=== PATIENT | male | born 1955 | race Caucasian/White ===

== ENCOUNTER 2022-06-08 06:14 | Observation (INO) ==
--- NOTE | 2022-06-07 13:02 | XRay Report ---
CLINICAL INFORMATION: Preop COMPARISON: 01/09/2017 TECHNIQUE: PA and Lateral views FINDINGS: The heart size, mediastinum and pulmonary vessels are unremarkable. The lungs are clear. There are no effusions. The bones and soft tissues are within normal limits. IMPRESSION: Normal chest. Interpreted and Authenticated by: Renaldo Suh 06/07/22
[2022-06-07 13:09] LABS: Basophils # (Auto) 0.08 K/mcL (0.00-0.30); Eosinophils # (Auto) 0.31 K/mcL (0.00-0.70); Hematocrit 44.3 % (40.1-51.0); Hemoglobin 15.4 g/dL (13.7-17.5); Lymphocytes # (Auto) 2.18 K/mcL (1.50-4.80); Lymphocytes % (Auto) 28.3 % (15.5-49.0); Mean Cell Volume 91.2 fL (80.0-100.0); Mean Corpuscular HGB Conc 34.8 g/dL (31.0-36.0); Mean Platelet Volume 10.3 fL (7.4-10.4); Monocytes # (Auto) 0.82 K/mcL (0.10-0.90); Monocytes % (Auto) 10.6 % (1.0-12.0); Neutrophils % (Auto) 55.2 % (38.0-78.0); Platelet Count 314 K/mcL (140-440); RBC 4.86 M/mcL (4.63-6.08); Red Cell Distribution Width 11.8 % (11.5-14.5); WBC 7.7 K/mcL (4.5-11.0)
[2022-06-07 13:54] LABS: Prothrombin Time 14.1 sec (11.9-14.5)
[2022-06-07 14:12] LABS: ALT/SGPT 74 U/L (<40); AST/SGOT 42 U/L (<40); Albumin/Globulin Ratio 1.3 (1.0-2.3); Alkaline Phosphatase 109 U/L (39-117); Bilirubin,Total 0.5 mg/dL (0.1-1.0); Blood Urea Nitrogen 14 mg/dL (8-23); Calcium 8.9 mg/dL (8.6-10.4); Carbon Dioxide 23 mmol/L (22-30); Chloride 104 mmol/L (96-108); Glomerular Filtration Rate 79; Glucose 87 mg/dL (70-105)
[~2022-06-08 06:14] MED LIST: ceFAZolin 2 GM in DEXTROSE 5% IN WATER 50 ML IV SCH
[2022-06-08] MEDS ORDERED: GLYCOPYRROLATE 0.2 MG/ML VIAL IV ONE (07:27)
[2022-06-08] MEDS ORDERED: PROPOFOL 200 MG/20 ML VIAL IV ONE (07:27)
[2022-06-08] MEDS ORDERED: fentaNYL 100 MCG/2 ML VIAL IV ONE (07:27)
[2022-06-08] MEDS ORDERED: SUGAMMADEX SODIUM 200 MG/2 ML VIAL IV ONE (07:27)
[2022-06-08] MEDS ORDERED: HYDROmorphone 1 MG/ML SYRINGE ONE (07:27)
[2022-06-08] MEDS ORDERED: LIDOCAINE HCL/PF 100 MG/5 ML SYRINGE IV ONE (07:27)
[2022-06-08] MEDS ORDERED: KETAMINE 50 MG/ML Syringe (ANEST) IV ONE (07:27)
[2022-06-08] MEDS ORDERED: MAGNESIUM SULFATE 2 GM/50 ML BAG IV ONE (07:27)
[2022-06-08] MEDS ORDERED: DEXAMETHASONE 10 MG/ML VIAL ONE (07:27)
[2022-06-08] MEDS ORDERED: MIDAZOLAM 2 MG/2 ML VIAL ONE (07:27)
[2022-06-08] MEDS ORDERED: ROCURONIUM 10 MG/ML ML IV ONE (07:27)
--- NOTE | 2022-06-08 09:11 | Brief Operative Note ---
Brief Operative Note Date of procedure: 06/08/22 Pre-op diagnosis: cholelithiasis with cholecystitis Post-op diagnosis: other (cholelithiasis with cholecystitis) Procedure: laparoscopic cholecystectomy Grafts/Implants: No (elvis drain #10) Anesthesia: GETA Findings: acute severe inflammation of gallbladder with multiple stones Complications: none Surgeon: Marcia Joyner Estimated blood loss (cc): 20 Specimens Removed/Pathology: other (gallbladder) Condition: stable Disposition: PACU
[2022-06-08] MEDS ORDERED: IPRATROPIUM/ALBUTEROL 3 ML AMPUL.NEB NEB PRN (09:19)
[2022-06-08] MEDS ORDERED: MEPERIDINE 25 MG/ML VIAL IV PRN (09:19)
[2022-06-08] MEDS ORDERED: NALOXONE HCL 0.4 MG/ML VIAL IV PRN (09:19)
[2022-06-08] MEDS ORDERED: FLUMAZENIL 0.1 MG/ML ML IV PRN (09:19)
[2022-06-08] MEDS ORDERED: LABETALOL 5 MG/ML ML IV PRN (09:19)
[2022-06-08] MEDS ORDERED: ACETAMINOPHEN 1,000 MG/100 ML BAG IV ONE (09:19)
[2022-06-08] MEDS ORDERED: LACTATED RINGERS 250 ML IV PRN (09:19)
[2022-06-08] MEDS ORDERED: ONDANSETRON 4 MG/2 ML VIAL IV PRN (09:19)
[2022-06-08] MEDS ORDERED: METHOCARBAMOL 1,000 MG/10 ML VIAL IV PRN (09:19)
[2022-06-08] MEDS ORDERED: METOPROLOL TARTRATE 5 MG/5 ML VIAL IV PRN (09:19)
[2022-06-08] MEDS: fentaNYL 100 MCG/2 ML VIAL IV PRN ×4 (09:25→09:31)
[2022-06-08] MEDS ORDERED: LACTATED RINGERS 1,000 ML IV SCH (09:30)
[2022-06-08] MEDS: HYDROmorphone 0.5 MG/0.5 ML SYRINGE IV PRN ×3 (09:38→10:20)
[2022-06-08] MEDS ORDERED: KETOROLAC 30 MG/ML VIAL IV ONE (09:46)
[2022-06-08] MEDS: oxyCODONE HCL 5 MG TABLET PO PRN ×4 (10:53→23:51)
[2022-06-08] MEDS: HYDROmorphone 1 MG/ML SYRINGE IV PRN ×2 (10:53→13:12)
[2022-06-08] MEDS: LEVOFLOXACIN 750 MG/150 ML BAG IV SCH (10:56)
[2022-06-08] MEDS: 0.9 % SODIUM CHLORIDE 1,000 ML IV SCH ×3 (11:00→23:39)
[2022-06-08] MEDS: 0.9 % SODIUM CHLORIDE 10 ML SYRINGE IV SCH ×2 (13:00→22:25)
[2022-06-08] MEDS: ACETAMINOPHEN 1,000 MG/100 ML BAG IV SCH ×2 (14:58→21:18)
[2022-06-09] MEDS: ACETAMINOPHEN 1,000 MG/100 ML BAG IV SCH ×2 (03:04→10:11)
[2022-06-09] MEDS: 0.9 % SODIUM CHLORIDE 1,000 ML IV SCH ×4 (03:42→21:55)
[2022-06-09] MEDS: 0.9 % SODIUM CHLORIDE 10 ML SYRINGE IV SCH ×3 (04:42→21:51)
[2022-06-09 06:51] LABS: Basophils # (Auto) 0.02 K/mcL (0.00-0.30); Basophils % (Auto) 0.1 % (0.0-2.0); Eosinophils # (Auto) 0 K/mcL (0.00-0.70); Eosinophils % (Auto) 0 % (0.0-7.0); Hematocrit 47.4 % (40.1-51.0); Hemoglobin 15.5 g/dL (13.7-17.5); Lymphocytes # (Auto) 1.16 K/mcL (1.50-4.80); Lymphocytes % (Auto) 8.4 % (15.5-49.0); Mean Cell Volume 95.4 fL (80.0-100.0); Mean Corpuscular HGB Conc 32.7 g/dL (31.0-36.0); Mean Platelet Volume 10.1 fL (7.4-10.4); Monocytes # (Auto) 1.05 K/mcL (0.10-0.90); Monocytes % (Auto) 7.6 % (1.0-12.0); Neutrophils % (Auto) 83.2 % (38.0-78.0); Platelet Count 261 K/mcL (140-440); RBC 4.97 M/mcL (4.63-6.08); Red Cell Distribution Width 11.9 % (11.5-14.5); WBC 13.8 K/mcL (4.5-11.0)
[2022-06-09 07:17] LABS: ALT/SGPT 619 U/L (<40); AST/SGOT 645 U/L (<40); Albumin 3.9 gm/dL (3.2-5.2); Albumin/Globulin Ratio 1.3 (1.0-2.3); Alkaline Phosphatase 184 U/L (39-117); Bilirubin,Total 3.5 mg/dL (0.1-1.0); Blood Urea Nitrogen 8 mg/dL (8-23); Calcium 8.9 mg/dL (8.6-10.4); Carbon Dioxide 22 mmol/L (22-30); Chloride 104 mmol/L (96-108); Globulin 3.1 gm/dL (2.2-3.7); Glomerular Filtration Rate 99; Glucose 117 mg/dL (70-105); Lactate Dehydrogenase 477 U/L (135-225); Phosphorous 2.6 mg/dL (2.5-4.5); Triglycerides 43 mg/dL (<150); Uric Acid 3.4 mg/dL (2.5-8.0)
[2022-06-09] MEDS: HYDROmorphone 1 MG/ML SYRINGE IV PRN ×2 (08:50→13:59)
[2022-06-09] MEDS ORDERED: NON FORMULARY MEDICATION 1 DOSE MISCELL PO SCH (09:00)
[2022-06-09] MEDS: oxyCODONE HCL 5 MG TABLET PO PRN ×2 (11:11→19:31)
[2022-06-09] MEDS: LEVOFLOXACIN 750 MG/150 ML BAG IV SCH (11:50)
--- NOTE | 2022-06-09 13:08 | Magnetic Resonance Report ---
CLINICAL INFORMATION: Cholecystectomy. Elevated bilirubin COMPARISON: Abdomen and pelvic CT 05/24/2022. TECHNIQUE: MRCP was performed using 3D FRFSE respiratory triggered and single-shot FSE thick slab technique. Axial T2 SSFSE and coronal SSFSE images were obtained through the upper abdomen as well. FINDINGS: Common bile duct is slightly dilated (8 mm) compatible post cholecystectomy state. Intrahepatic common hepatic ducts are normal. There is no stones within the common bile duct. Pancreatic duct is normal in contour, caliber and signal. The liver, both kidneys, adrenal glands, spleen, pancreas and aorta are normal in size, configuration and signal intensity. No free fluid. IMPRESSION: Slight dilatation the common bile duct-expected post cholecystectomy state. Exam otherwise normal. Interpreted and Authenticated by: Renaldo Suh 06/09/22
--- NOTE | 2022-06-09 13:43 | General Surgery Progress Note ---
SUBJECTIVE Subjective Patient information: Note initiated : 06/09/22 at 1:34 pm Service Date, if different from initiated Date: [] Patient: Eladio Rolle 67 y/o M admitted on 06/09/22 for Laparoscopic Cholecystectomy. Chief Complaint: [] Principal diagnosis: Acute cholecystitis with cholelithiasis Interval history: Patient is status post laparoscopic cholecystectomy on yesterday. He had acute severe inflammation but his surgery proceeded well. His LFTs are elevated with bilirubin of 3.5 AST 645, ALT 619, alkaline phosphatase 184. Serum lipase is normal. Patient underwent MRCP earlier today and it is interpreted as normal with normal size common bile duct and normal tapering at the papilla with contrast in the bile and normal pancreatic duct. There are no filling defects in the hepatic or the common bile duct. This was reviewed with the radiologist. Discussed the findings with data analyst who suggest that we repeat the LFTs in the morning and if they are trending down he will not need to have ERCP. Constitutional Vitals: Vital Signs Temp Pulse Resp BP Pulse Ox O2 Del Method O2 Flow Rate 98 F 60 16 124/70 96 3 06/09/22 11:14 06/09/22 11:14 06/09/22 11:14 06/09/22 11:14 06/09/22 11:14 06/09/22 11:14 06/08/22 10:25 Period Temp Pulse Resp BP Sys/Batista Pulse Ox O2 Del Method O2 Flow Rate Last 24 Hr 97.3 F-98.1 F 59-78 14-20 120-143/70-91 95-97 Room Air-Room Air Intake and Output 06/08/22 06/09/22 06/09/22 21:59 05:59 13:59 Intake Total 2450 400 1240 Output Total 280 30 Balance 2170 370 1240 Intake & Output: Intake & Output 06/08/22 06/09/22 06/09/22 21:59 05:59 13:59 Intake Total 2450 400 1240 Output Total 280 30 Balance 2170 370 1240 Intake: IV 7820 352 9813 Sodium Chloride 0.9% 1,000 ml @ 1000 1000 100 mls/hr IV .Q10H SHANKAR Rx#: [id number] Oral 1250 300 240 Output: Drainage 30 30 Right Lower Abdomen 30 30 Void Amount 250 Other: Meal Breakfast Percent of Meal Consumed 100% Feeding Ability Independent # Voids 1 2 Eye Eye exam: Present EOMI, normal appearance and scleral icterus (Mild) ENT ENT exam: Present normal external ear exam and normal oropharynx Neck Neck exam: Present full ROM and normal inspection; Absent tenderness Respiratory Respiratory exam: Present normal respiratory exam and CTAB Cardiovascular Cardiovascular exam: Present normal rate and rhythm, RRR, +S1 and +S2; Absent JVD GI/Abdominal GI/Abdominal exam: Present normal bowel sounds and distended Additional comments: KEON drainage is serosanguineous Extremities Exam Extremities exam: Present full ROM and neurovascular intact Neurological Exam Neurological exam: Present alert, normal gait, oriented X3 and reflexes normal Psychiatric Psychiatric exam: Present normal affect and normal mood A/P Assessment and plan (1) Cholelithiasis with cholecystitis without obstruction: Status: Acute (2) Hypertension: Status: Chronic (3) GERD (gastroesophageal reflux disease): Status: Chronic (4) Elevated liver transaminase level: Status: Acute Plan Patient is stable except for elevated transaminases Will repeat labs in the morning and make decision concerning ERCP based on the trending of the labs Time Spent With Patient Time: Total time spent is greater than 50% in coordination of care (as documented) at patient's floor/unit and/or counseling patient:
[2022-06-09] MEDS ORDERED: ALPRAZolam 0.5 MG TABLET PO ONE (19:50)
[2022-06-09] MEDS ORDERED: METHOCARBAMOL 750 MG TABLET PO SCH (21:00)
[2022-06-09] MEDS: LOSARTAN 50 MG TABLET PO SCH (21:47)
[2022-06-10] MEDS: oxyCODONE HCL 5 MG TABLET PO PRN (03:16)
[2022-06-10] MEDS: 0.9 % SODIUM CHLORIDE 10 ML SYRINGE IV SCH (05:04)
[2022-06-10 06:30] LABS: Basophils # (Auto) 0.05 K/mcL (0.00-0.30); Basophils % (Auto) 0.6 % (0.0-2.0); Eosinophils # (Auto) 0.11 K/mcL (0.00-0.70); Eosinophils % (Auto) 1.3 % (0.0-7.0); Hematocrit 45.7 % (40.1-51.0); Hemoglobin 15.3 g/dL (13.7-17.5); Lymphocytes # (Auto) 2.46 K/mcL (1.50-4.80); Lymphocytes % (Auto) 28.2 % (15.5-49.0); Mean Corpuscular HGB Conc 33.5 g/dL (31.0-36.0); Mean Platelet Volume 10.4 fL (7.4-10.4); Monocytes # (Auto) 0.82 K/mcL (0.10-0.90); Monocytes % (Auto) 9.4 % (1.0-12.0); Neutrophils % (Auto) 59.8 % (38.0-78.0); Platelet Count 246 K/mcL (140-440); RBC 4.97 M/mcL (4.63-6.08); Red Cell Distribution Width 12.2 % (11.5-14.5); WBC 8.7 K/mcL (4.5-11.0)
[2022-06-10 06:59] LABS: ALT/SGPT 570 U/L (<40); AST/SGOT 341 U/L (<40); Albumin 3.6 gm/dL (3.2-5.2); Albumin/Globulin Ratio 1.2 (1.0-2.3); Alkaline Phosphatase 185 U/L (39-117); Bilirubin,Direct 0.6 mg/dL (<0.3); Bilirubin,Total 1.1 mg/dL (0.1-1.0); Blood Urea Nitrogen 6 mg/dL (8-23); Calcium 8.5 mg/dL (8.6-10.4); Carbon Dioxide 24 mmol/L (22-30); Chloride 107 mmol/L (96-108); Globulin 2.9 gm/dL (2.2-3.7); Glomerular Filtration Rate 89; Glucose 86 mg/dL (70-105); Lactate Dehydrogenase 287 U/L (135-225); Phosphorous 2.3 mg/dL (2.5-4.5); Triglycerides 94 mg/dL (<150); Uric Acid 3.2 mg/dL (2.5-8.0)
[2022-06-10] MEDS: 0.9 % SODIUM CHLORIDE 1,000 ML IV SCH (08:12)
[2022-06-10] MEDS: LOSARTAN 50 MG TABLET PO SCH (08:13)
--- NOTE | 2022-06-10 10:15 | Discharge Summary ---
Discharge Provider Provider IMPORTANT FOLLOW-UP INFORMATION FOR PCP: Patient information: Note initiated : 06/10/22 at 10:13 am Service Date, if different from initiated Date: [] Patient: Eladio Rolle 67 y/o M admitted on 06/09/22 for Laparoscopic Cholecystectomy. Chief Complaint: [] Date of admission: 06/09/22 08:43 Discharge date: 06/10/22 Primary care physician: Yojana Oconnor Admitting clinician: Marcia Joyner Attending physician on admission: Marcia Joyner Attending physician on discharge: Marcia Joyner Discharging clinician: Marcia Joyner COURSE Hospital Course Hospital course: 67-year-old male with history of cholelithiasis and cholecystitis. He underwent laparoscopic cholecystectomy on 06/08/2022. He had a major stone blocking the neck of the gallbladder with severe inflammation. He had a difficult dissection but the ductal structures were isolated appropriately. He did well in the postop period but follow-up enzymes on the first postop day showed bilirubin of 3.5, ALK AST of 6045, ALT 619, alkaline phosphatase of 184. He also had a white blood count of 13,800. The patient underwent an MRCP. This was interpreted as normal with a normal cystic duct remnant, 8 mm common bile duct, normal pancreatic duct and free flow into the duodenum. It was elected to simply monitor the patient overnight. He continues to do well. He tolerated regular diet. Today his white blood count is down to 8700 and his liver enzymes are all decreased with a bilirubin of 1.1, AST 341, ALT 570, alkaline phosphatase 185. Patient has no complaints at this time and is stable for discharge home. He is advised to have repeat liver enzymes and CBC on the Monday prior to his office follow-up. He states that he will have this done at his primary care office and they will get us a copy. Discharge diagnosis: Acute cholecystitis with cholelithiasis Secondary discharge diagnosis: Elevated liver transaminase levels Hypertension Gastroesophageal reflux disease Reason for admission: Postoperative cholecystectomy Procedures: Laparoscopic cholecystectomy Pertinent studies/significant findings: MRCP on 06/09/2022 Complications: None Time Spent with Patient Time attestation: Total time spent providing and/or coordinating discharge services: Time spent: Less than 30 minutes Physical Examination Vital Signs Vital signs: Temp Pulse Resp BP Pulse Ox O2 Del Method O2 Flow Rate 98.2 F 58 L 19 138/89 97 3 06/10/22 07:16 06/10/22 07:16 06/10/22 07:16 06/10/22 07:16 06/10/22 07:16 06/10/22 03:20 06/08/22 10:25 Eyes Eye exam: PERRL and normal ocular movement; negative icteric ENT ENT exam: normal mucosa and decreased hearing Head Head exam IM: Present atraumatic, normal inspection and normocephalic Neck Neck exam: no masses, no bruits, trachea midline, no lymphadenopathy and no venous distension Cardiovascular Cardiovascular exam IM: Present RRR, +S1 and +S2; Absent normal rate and rhythm, gallop or JVD Respiratory Respiratory exam: normal expansion, normal respiratory effort and clear to auscultation Abdomen Abdomen: Present soft, tender (Tenderness around port sites) and surgical scars (Port sites. Unremarkable) Integumentary Integumentary: Present no rash, no growths and no abnormal pigmentation Neurologic Neurologic: Present normal coordination and normal sensation Musculoskeletal Musculoskeletal: Present normal gait and normal posture Psychiatric Psychiatric: Present oriented to time, oriented to person, oriented to place, speech is normal and memory intact Discharge Plan Patient/Caregiver Discharge Instructions Activity: increase activity as tolerated Diet: Low Fat Instructions: Oxycodone/Acetaminophen (By mouth), Levofloxacin (By mouth), Laparoscopic Cholecystectomy (DC) Stand Alone Forms: Work/Release Restrictions Prescriptions: New oxycodone-acetaminophen [Endocet] 10-325 mg tablet 1 tab PO Q4H PRN (Reason: Pain) Qty: 30 0RF levofloxacin [levofloxacin] 750 mg tablet 750 mg PO DAILY Qty: 7 0RF Continued methocarbamol 750 mg tablet 750 mg PO QHS tramadol 50 mg tablet 50 mg PO BID etodolac 400 mg tablet 400 mg PO BID valsartan 80 mg tablet 80 mg PO QAM diltiazem HCl 240 mg capsule,extended release 24hr 240 mg PO QAM oxycodone-acetaminophen 7.5-325 mg tablet 1 tab PO TID PRN (Reason: Pain) tadalafil 20 mg tablet 20 mg PO QDAY PRN (Reason: Rash) Rx Instructions: administer approximately 30min before sexual activity; do not use more than 1 dose per 24hrs multivitamin Tablet 1 tab PO QAM magnesium 500 mg Tablet 500 mg PO ONCE triamcinolone acetonide 0.1 % Cream 1 applic TOPICAL QDAY Follow Up Plan Follow up with: Marcia Joyner MD [Physician] - 06/23/22 9:45 am Patient Disposition: Home, Self-Care Plan of Treatment: patient needs to have a CBC AND COMPREHENSIVE PANEL PERFORMESD ON 20 JUNE 2022 Prognosis: Good Rehab Potential: Good I certify that the patient requires SNF services: No Overall status at discharge: patient is progressing back to baseline Discharge Orders: Discharge Order (Routine); Ordered 06/10/22 Ordered By: Marcia Joyner Pending Pending Pending: Resuscitation Status Resuscitate (Full Code) Diet Low Fat Diet Start MonJun 10 703 Hydromorphone HCl (Hydromorphone 1 Mg/Ml Syringe) 1 mg IV Q2HP PRN; Protocol PRN Reason: Per Pain Protocol Last Admin: 06/09/22 13:59 Dose: 1 mg Documented By: Admin: 06/09/22 08:50 Dose: 1 mg Documented By: Admin: 06/08/22 13:12 Dose: 1 mg Documented By: Admin: 06/08/22 10:53 Dose: 1 mg Documented By: GRACIELA Sodium Chloride (Sodium Chloride 0.9%) 1,000 mls @ 100 mls/hr IV .Q10H SHANKAR Last Infusion: 06/10/22 09:03 Dose: 0 mls/hr Documented By: Admin: 06/10/22 08:12 Dose: 100 mls/hr Documented By: Infusion: 06/10/22 07:55 Dose: 100 mls/hr Documented By: Admin: 06/09/22 21:55 Dose: 100 mls/hr Documented By: Infusion: 06/09/22 21:55 Dose: 0 mls/hr Documented By: EkaterinaXDanny Admin: 06/09/22 14:13 Dose: Not Given Documented By: Admin: 06/09/22 09:40 Dose: 100 mls/hr Documented By: Infusion: 06/09/22 09:39 Dose: 0 mls/hr Documented By: Admin: 06/09/22 03:42 Dose: Not Given Documented By: Admin: 06/08/22 23:39 Dose: 100 mls/hr Documented By: Admin: 06/08/22 21:19 Dose: Not Given Documented By: Infusion: 06/08/22 21:00 Dose: 100 mls/hr Documented By: Admin: 06/08/22 11:00 Dose: 100 mls/hr Documented By: GRACIELA Levofloxacin (Levaquin) 750 mg in 150 mls @ 100 mls/hr IV Q24H SHANKAR; Protocol Last Infusion: 06/09/22 13:49 Dose: 0 mls/hr Documented By: Admin: 06/09/22 11:50 Dose: 100 mls/hr Documented By: Infusion: 06/08/22 12:26 Dose: 0 mls/hr Documented By: Admin: 06/08/22 10:56 Dose: 100 mls/hr Documented By: GRACIELA Losartan Potassium (Losartan 50 Mg Tablet) 50 mg PO DAILY [facility] Last Admin: 06/10/22 08:13 Dose: 50 mg Documented By: Admin: 06/09/22 21:47 Dose: 50 mg Documented By: TRACIE Methocarbamol (Methocarbamol 750 Mg Tablet) 750 mg PO HS [facility] Last Admin: 06/09/22 21:47 Dose: 750 mg Documented By: TRACIE Oxycodone HCl (Oxycodone Hcl 5 Mg Tablet) 10 mg PO Q4HP PRN; Protocol PRN Reason: Per Pain Protocol Last Admin: 06/10/22 03:16 Dose: 5 mg Documented By: Admin: 06/09/22 19:31 Dose: 10 mg Documented By: Admin: 06/09/22 11:11 Dose: 10 mg Documented By: Admin: 06/08/22 23:51 Dose: 10 mg Documented By: Admin: 06/08/22 20:06 Dose: 10 mg Documented By: Admin: 06/08/22 16:13 Dose: 10 mg Documented By: Admin: 06/08/22 10:53 Dose: 10 mg Documented By: GRACIELA Sodium Chloride (0.9 % Sodium Chloride 10 Ml Syringe) 10 ml IV Q8 [facility] Last Admin: 06/10/22 05:04 Dose: Not Given Documented By: Admin: 06/09/22 21:51 Dose: Not Given Documented By: Admin: 06/09/22 14:00 Dose: Not Given Documented By: Admin: 06/09/22 04:42 Dose: Not Given Documented By: Admin: 06/08/22 22:25 Dose: Not Given Documented By: Admin: 06/08/22 13:00 Dose: Not Given Documented By: GRACIELA Shift Summary 06/10/22 04:01 Shift Summary by Zeynep Chun Primary Diagnosis: Cholelithiasis Registration Status: Observation Day of Hospitalization (admit date=day zero): Admitted 06/07/22 Date of Surgery (if applicable): 06/08/22 Pertinent Medical Dx/Issue(s): HTN, GERD, Lumbar disc herniation Interventions (wounds, diuresis, etc): 3 abominal stab wounds with 11 wendy, KEON to RUQ Vital Signs with Trends: Hypertensive with DBP high 80s to low 100s. Called Dr. Joyner to reorder some home medications. O2, liter flow/saturations: RA SpO2 in the high 90s. Vent/Bipap/Cpap: Meds (abo, pain, BP, etc): Methocarbamol (takes it for sleep), Roxicodone 10 mg once et 5 mg once-did not want to take 10 mg in case he can drive home this morning, Xanax 1 mg po once. Lab/Rad (abnormal results): Elevated liver enzymes from 40s to 600s. Will recheck today Neuro/Mental Status: Awake, alert et oriented times 4, drinks wine with dinner et 2 shots Dante Beam on Fridays-CIWA initiated, was 4 down to [address] with [address]ax. Dr[address] Joyner aware, ordered wine with dinner. Cardiac Rhythm, Alarm Settings: Urinary Elimination (Castellanos out in 24H?; u.o. > 30mL/hr?): Has voided 3 times so far, walks to the bathroom with SBA Date of last BM:06/08/22 Lines/Tubes: NS at 100 ml/hr via iv site RW Activity: Up with SBA Recommendations/questions for MD: Expected date of discharge: Depends upon today's lab results Discharge Plan (needs, disposition, etc): Home to Initialized on 06/10/22 04:01 - END OF NOTE
--- NOTE | 2022-06-22 14:15 | Operative Note ---
DATE OF OPERATION: 06/08/2022 DATE OF PROCEDURE: 06/08/2022 PREOPERATIVE DIAGNOSIS: Cholelithiasis with cholecystitis. POSTOPERATIVE DIAGNOSIS: Cholelithiasis with cholecystitis. PROCEDURE: Laparoscopic cholecystectomy. SURGEON: Marcia Joyner M.D. FINDINGS: Severe inflammation of gallbladder with multiple stones. DESCRIPTION OF PROCEDURE: Under general anesthesia, the patient's abdomen was prepped and draped in a sterile field. Timeout procedure was carried out as per protocol. Supraumbilical incision was made and Veress needle was inserted. The abdomen was insufflated with 3 liters of CO2. A 12 mm port was placed. Laparoscope was placed. Under videoscopic guidance, a 12 mm port and two 5 mm ports were placed in the right subcostal region. Gallbladder was severely distended, so it was decompressed with a Weck needle. It was then grasped and positioned. Cystic duct and cystic artery were dissected. Cystic duct was transected using the Endo DAREN stapler at its junction with the gallbladder and infundibulum. Cystic artery was clipped with 5 clips and divided. The gallbladder was then primarily dissected from the bed using blunt dissection. Hemostasis was achieved with electrocautery. The gallbladder was placed in an Endopouch and retrieved. Irrigation was carried out. Surgicel was placed in the bed for hemostatic reasons. A #10 Evangelista drain was placed in the subhepatic space. It was brought out through the most lateral port site. CO2 was allowed to escape from the abdomen and the ports were removed. The fascia at the umbilicus was closed with 0 Vicryl. Skin incisions were closed with wendy. The drain was secured with 2-0 nylon. Tegaderm dressings were placed. The patient tolerated the procedure well. He was awakened, transferred to a bed, and taken to the postanesthetic care unit in satisfactory condition. LCS:riley Job ID: [id number] Doc ID: [id number] Marcia Joyner M.D.
== END 2022-06-10 10:54 | disposition home or self-care (01) ==
LOC: MEDSUR 06:14 → SUR 06:14 → MEDSUR 10:36
PROVIDERS: ADMIT Family Medicine Adult Medicine; ATTEND Family Medicine Adult Medicine